=== PATIENT | female | born 1985 | race Caucasian/White ===

== ENCOUNTER → 2018-10-16 | Outpatient (CLI) | payer BC, OTHER ==
[~2018-10-16] MED LIST: ACHD5005 PO; PREN1TAB71 PO
--- NOTE | 2018-10-16 14:27 | Diagnostic Imaging Report ---
INDICATION: Bilateral breast pain. TECHNIQUE: Multiple Real-time grayscale images were obtained of both breasts in a retroareolar fashion. FINDINGS: There is very minimal ductal ectasia bilaterally. There are no discrete pulmonary nodules or masses. IMPRESSION: Benign findings. ACR BI-RADS Category 2: Benign findings. Result letter will be mailed to the patient. Note: At least 10% of breast cancer is not imaged by mammography. Minimal ductal ectasia otherwise unremarkable bilateral retroareolar breast ultrasound Dictated by: Dictated on workstation # [id number]
--- NOTE | 2018-10-16 21:19 | Diagnostic Imaging Report ---
INDICATION: Breast pain. COMPARISON: No prior examination available for comparison. FINDINGS: The breasts demonstrate heterogeneously dense fibroglandular tissue bilaterally. This can limit the sensitivity for the detection of small nodules. There is however no dominant mass, spiculated lesion or suspicious calcifications identified. The skin, nipples and axillae are unremarkable. Bilateral subareolar ultrasound was also performed. This demonstrates mild ductal ectasia. IMPRESSION: ACR Category 2: Benign. ACR BI-RADS Category 2: Benign findings. Result letter will be mailed to the patient. Note: At least 10% of breast cancer is not imaged by mammography. Dictated by: Dictated on workstation # [id number]
== END ==
LOC: RAD 13:14
PROVIDERS: ATTEND Family Medicine
DX: N64.4 Mastodynia (principal)
CPT/HCPCS: 76642; 77066